=== PATIENT | male | born 1935 | race Caucasian/White ===

== ENCOUNTER → 2019-08-15 | Outpatient (CLI) | payer MEDICARE, BC ==
[2016-07-16 03:30] VITALS: BP 176/92
[~2019-08-15] MED LIST: ASPIRIN E.C. 8181 M1 PO; CLONAZEPAM0.5 MG PO; CLOPIDOGREL PO; COLACE 100100 MG/CAP PO; IRON325 M1 PO; LOPRESSOR 550 MG/TAB PO; MECLIZINE HCL25 MG PO; METOPROLOL SUCC50 MG PO; METOPROLOL TAR100 MG PO; MIRALAX PA17 GM/Dose PO; PLAVIX 75MG TAB75 MG PO; PROSCAR PO; SIMVASTATIN40 MG PO; TOPROL XL 25MG25 MG PO; ULTRAM50 MG PO; ZETIA 10MG TAB10 MG PO; Zocor PO
== END ==
LOC: RAD 10:45
DX: I67.82 Cerebral ischemia (principal); G31.9 Degenerative disease of nervous system, unspecified
CPT/HCPCS: A9585

== ENCOUNTER → 2020-02-04 | Outpatient (CLI) | payer MEDICARE, BC ==
[2016-07-16 03:30] VITALS: BP 176/92
== END ==
LOC: RAD 10:10
DX: M79.661 Pain in right lower leg (principal)

== ENCOUNTER 2020-03-10 08:04 | Observation (INO) | payer MEDICARE, BC ==
[~2020-03-10] VITALS: Ht 167.6 cm; Wt 75.2 kg
[2020-03-10] MEDS ORDERED: ARICEPT5 M1 PO (08:20)
[2020-03-10] MEDS ORDERED: CHILDREN'S ASPI81 M1 PO (08:21)
[2020-03-10 08:45] LABS: EOS # 0.1 (0.04-0.40); EOS % 1.1 % (0.0-4.0); HEMATOCRIT 47.3 % (42.0-52.0); HEMOGLOBIN 15.8 g/dL (13.5-18.0); LYMPH# 1.2 (1.50-4.00); MEAN CELL VOLUME 95 fl (78-100); MEAN CORPUSCULAR HEMOGLOBIN 32 pg (27-31); MEAN CORPUSCULAR HGB CONC 33 g/dL (33-37); MEAN PLATELET VOLUME 10.7 fl (7.4-10.4); MONO # 0.6 (0.20-0.80); NEU # 3.7 (1.40-6.50); PLATELET COUNT 158 K/mm3 (130-400); RED BLOOD COUNT 4.97 M/mm3 (4.20-5.60); RED CELL DISTRIBUTION WIDTH 13.6 % (11.5-14.5); WHITE BLOOD COUNT 5.6 K/mm3 (4.8-10.8)
[2020-03-10 08:58] LABS: ALBUMIN 4.1 g/dL (3.4-4.8)
[2020-03-10 08:59] LABS: POTASSIUM 3.7 mmol/L (3.5-5.1)
[2020-03-10 09:00] LABS: CALCIUM 8.2 mg/dL (8.3-10.5)
[2020-03-10 09:03] LABS: TOTAL BILIRUBIN 0.9 mg/dL (0.2-1.2)
[2020-03-10 09:57] LABS: PH-URINE 6.5 (5.0 - 8.0); URINE APPEARANCE HAZY; URINE BILIRUBIN NEGATIVE (NEGATIVE); URINE COLOR YELLOW; URINE GLUCOSE NEGATIVE (NEGATIVE); URINE KETONE NEGATIVE (NEGATIVE); URINE PROTEIN(semi-quant) NEGATIVE (NEGATIVE); URINE UROBILINOGEN NORMAL (NORMAL)
[2020-03-10 09:58] LABS: URINE BLOOD TRACE (NEGATIVE); URINE LEUKOCYTE ESTERASE TRACE (NEGATIVE); URINE MUCUS PRESENT (NOT PRESENT); URINE NITRATE NEGATIVE (NEGATIVE)
--- NOTE | 2020-03-10 10:54 | NUR ---
PT ADMITTED OBSERVATION TO ROOM 304, STABLE CONDITION, EDUCATED ON "NO VISITOR POLICY" FOR PUI'S, HESITANT BUT AGREEABLE, PT ESCORTED TO ROOM VIA WHEELCHAIR, STATES "IM REALLY FEELING MUCH BETTER NOW, BUT I SUPPOSE I'LL STAY," WILL MONITOR PT FOR FURTHER DIZZINESS/FATIGUE
[2020-03-10 11:01] VITALS: BP 164/87
[2020-03-10 11:21] VITALS: BP 164/87
--- NOTE | 2020-03-10 11:30 | NUR ---
Tele applied at this time by staff.
[2020-03-10 13:59] VITALS: BP 137/74
[2020-03-10 17:33] VITALS: BP 157/103
--- NOTE | 2020-03-10 21:04 | NUR ---
Pt assessment complete. Pt is laying in bed upon entry, he is alert and oriented to person and place although he is unable to recall what month it is. Pt is able to recall event that brought him into the ER. He reports he has had no further issues with dizziness after arriving here. He denies any pain. No SOB or nausea. Strength equal bilaterally. Denies needs at this time, reports he is going to try and sleep. Call light within reach.
[2020-03-10 21:16] VITALS: BP 159/88
--- NOTE | 2020-03-10 22:45 | NUR ---
Report received from Michelle Zhao RN. Pt resting in bed, eyes closed. Bed alarm set and call light with in reach.
[2020-03-11 01:54] VITALS: BP 144/92
[2020-03-11 05:47] VITALS: BP 138/98
--- NOTE | 2020-03-11 06:20 | NUR ---
Q hourly checks done, bed alarm and call light with in reach. 0600 denied having any pain or SOB. Neuro checks done, see process intervention. Answers all questions appropriately.
--- NOTE | 2020-03-11 07:21 | NUR ---
PATIENT REPORT RECEIVED FROM EDUARDO CHAN. PATIENT SLEEPING IN ROOM
[2020-03-11] MEDS ORDERED: ZESTRIL5 M1 PO (08:15)
--- NOTE | 2020-03-11 08:40 | NUR ---
PLAN IS TO DISCHARGE TODAY AROUND 10:00AM. PATIENT IS AWARE AND WOULD LIKE TO EAT BREAKFAST IN BED THEN GET UP FOR THE DAY AND GET READY TO LEAVE
--- NOTE | 2020-03-11 09:56 | NUR ---
PATIENT DISCHARGED WITH INSTRUCTIONS GIVEN. DENIES QUESTIONS OR CONCERNS AND VERBALIZES UNDERSTANDING TO QUARANTINE UNTIL RESULTS ARE AVAILABLE. PATIENT DENIES DIZZINESS OR OTHER SYMPTOMS AT THIS TIME. PATIENT REPORTS HE IS TO HAVE UPCOMING STRESS TEST AND WILL DISCUSS IF HE HAS HAD ATRIAL FIBRILLATION IN THE PAST. PATIENT AMBULATORY OUT OF DEPT WITH HIS WAITING FOR HIM IN THE CAR. PATIENT HAS ALL HIS BELONGINGS AND IV SITE WAS D/C'D.
[2020-03-11 10:00] VITALS: BP 153/83
== END 2020-03-11 10:00 | disposition home or self-care (01) ==
LOC: ED 08:04 → MED/SURG 10:27
PROVIDERS: ADMIT Nurse Practitioner Primary Care
DX: R42 Dizziness and giddiness (principal); I10 Essential (primary) hypertension; I25.10 Atherosclerotic heart disease of native coronary artery without angina pectoris; I25.2 Old myocardial infarction; F03.90 Unspecified dementia, unspecified severity, without behavioral disturbance, psychotic disturbance, mood disturbance, and anxiety; Z86.73 Personal history of transient ischemic attack (TIA), and cerebral infarction without residual deficits; Z79.82 Long term (current) use of aspirin; Z88.2 Allergy status to sulfonamides; Z88.5 Allergy status to narcotic agent; Z20.828 Contact with and (suspected) exposure to other viral communicable diseases
CPT/HCPCS: G0378

== ENCOUNTER → 2020-04-10 | Outpatient (CLI) | payer MEDICARE, BC ==
[2020-03-11 10:00] VITALS: BP 153/83
[~2020-04-10] MED LIST changes: +ARICEPT5 M1 PO; +CHILDREN'S ASPI81 M1 PO; +ZESTRIL5 M1 PO
== END ==
LOC: LAB 08:12
DX: N40.1 Benign prostatic hyperplasia with lower urinary tract symptoms (principal)

== ENCOUNTER 2020-04-14 21:20 | Emergency (ER) | payer MEDICARE, BC ==
[2020-04-14 22:00] LABS: HEMATOCRIT 47.4 % (42.0-52.0); HEMOGLOBIN 15.4 g/dL (13.5-18.0); MEAN CELL VOLUME 96 fl (78-100); MEAN CORPUSCULAR HEMOGLOBIN 31 pg (27-31); MEAN CORPUSCULAR HGB CONC 33 g/dL (33-37); MEAN PLATELET VOLUME 10.6 fl (7.4-10.4); PLATELET COUNT 152 K/mm3 (130-400); RED BLOOD COUNT 4.95 M/mm3 (4.20-5.60); RED CELL DISTRIBUTION WIDTH 13.6 % (11.5-14.5); WHITE BLOOD COUNT 8.4 K/mm3 (4.8-10.8)
[2020-04-14 22:13] LABS: ALBUMIN 4.2 g/dL (3.4-4.8)
[2020-04-14 22:15] LABS: CALCIUM 8.9 mg/dL (8.3-10.5)
[2020-04-14 22:16] LABS: TOTAL PROTEIN 7.1 g/dL (6.2-8.1)
[2020-04-14 22:18] LABS: TOTAL BILIRUBIN 0.7 mg/dL (0.2-1.2)
[2020-04-14 22:20] LABS: LYMPHOCYTE 9 % (20-51); MONOCYTE 4 % (3-10); NEUTROPHILS 87 % (42-75)
[2020-04-14] MEDS ORDERED: SIMVASTATIN40 M1 PO (22:29)
[2020-04-14] MEDS ORDERED: EZETIMIBE10 M1 PO (22:30)
[2020-04-14 23:01] LABS: URINE APPEARANCE CLEAR; URINE BILIRUBIN NEGATIVE (NEGATIVE); URINE BLOOD TRACE (NEGATIVE); URINE COLOR YELLOW; URINE GLUCOSE NEGATIVE (NEGATIVE); URINE KETONE 2+ (NEGATIVE); URINE LEUKOCYTE ESTERASE NEGATIVE (NEGATIVE); URINE NITRATE NEGATIVE (NEGATIVE); URINE PROTEIN(semi-quant) 2+ mg/dL (NEGATIVE); URINE UROBILINOGEN NORMAL (NORMAL); URINE WBC 0-1 /hpf (0-3)
[2020-04-14 23:02] LABS: URINE MUCUS PRESENT (NOT PRESENT)
[2020-04-14 23:28] VITALS: BP 155/83
== END 2020-04-14 23:28 | disposition home or self-care (01) ==
LOC: ED 21:20
PROVIDERS: Nurse Practitioner
DX: R42 Dizziness and giddiness (principal); R11.2 Nausea with vomiting, unspecified; I10 Essential (primary) hypertension; I25.2 Old myocardial infarction; Z79.82 Long term (current) use of aspirin; Z87.442 Personal history of urinary calculi; Z95.9 Presence of cardiac and vascular implant and graft, unspecified; Z86.73 Personal history of transient ischemic attack (TIA), and cerebral infarction without residual deficits
CPT/HCPCS: J2405; J7030

== ENCOUNTER → 2021-06-03 | Outpatient (CLI) | payer MEDICARE, BC ==
[~2021-06-03] MED LIST changes: +EZETIMIBE10 M1 PO; +SIMVASTATIN40 M1 PO
== END ==
LOC: LAB 10:26
DX: R07.9 Chest pain, unspecified (principal)

== ENCOUNTER 2022-04-19 19:07 | Emergency (ER) | payer MEDICARE, BC ==
[~2022-04-19] VITALS: Ht 170.2 cm; Wt 75.2 kg
[~2022-04-19 19:07] MED LIST changes: +ASPIRIN E.C. 8181 MG PO; -CHILDREN'S ASPI81 M1 PO
[2022-04-19] MEDS ORDERED: NITROSTAT0.4 M1 SL (19:29)
[2022-04-19] MEDS ORDERED: CRESTOR20 MG PO (19:29)
[2022-04-19] MEDS ORDERED: PROSCAR PO (19:30)
[2022-04-19 21:30] LABS: BASO # 0.03 K/mm3 (0.02-0.10); EOS # 0.08 K/mm3 (0.04-0.40); EOS % 0.8 % (0.0-4.0); HEMATOCRIT 44.1 % (42.0-52.0); HEMOGLOBIN 14.6 g/dL (13.5-18.0); LYMPH# 1.18 K/mm3 (1.50-4.00); MEAN CELL VOLUME 96 fl (78-100); MEAN CORPUSCULAR HEMOGLOBIN 32 pg (27-31); MEAN CORPUSCULAR HGB CONC 33 g/dL (33-37); MEAN PLATELET VOLUME 12.5 fl (7.4-10.4); MONO # 0.91 K/mm3 (0.20-0.80); NEU # 7.87 K/mm3 (1.40-6.50); PLATELET COUNT 136 K/mm3 (130-400); RED BLOOD COUNT 4.58 M/mm3 (4.20-5.60); RED CELL DISTRIBUTION WIDTH 13.3 % (11.5-14.5); WHITE BLOOD COUNT 10.1 K/mm3 (4.8-10.8)
[2022-04-19] MEDS ORDERED: LOPRESSOR 225 MG/TAB PO (21:30)
[2022-04-19 21:40] LABS: ALBUMIN 3.8 g/dL (3.4-4.8); POTASSIUM 5.3 mmol/L (3.5-5.1)
[2022-04-19 21:41] LABS: CALCIUM 8.7 mg/dL (8.3-10.5)
[2022-04-19 21:42] LABS: TOTAL PROTEIN 6.9 g/dL (6.2-8.1)
[2022-04-19 21:44] LABS: TOTAL BILIRUBIN 0.6 mg/dL (0.2-1.2)
[2022-04-19 22:29] LABS: URINE APPEARANCE CLEAR; URINE BILIRUBIN NEGATIVE (NEGATIVE); URINE BLOOD 2 (NEGATIVE); URINE COLOR YELLOW; URINE GLUCOSE NEGATIVE (NEGATIVE); URINE KETONE 1+ (NEGATIVE); URINE LEUKOCYTE ESTERASE NEGATIVE (NEGATIVE); URINE NITRATE NEGATIVE (NEGATIVE); URINE PROTEIN(semi-quant) NEGATIVE (NEGATIVE); URINE UROBILINOGEN NORMAL (NORMAL)
[2022-04-19 22:30] LABS: URINE WBC 0-1 /hpf (0-3)
[2022-04-20 08:14] LABS: ALBUMIN 4.1 g/dL (3.4-4.8)
[2022-04-20 08:15] VITALS: BP 125/97
[2022-04-20 08:15] LABS: POTASSIUM 4.1 mmol/L (3.5-5.1)
[2022-04-20 08:16] LABS: CALCIUM 8.7 mg/dL (8.3-10.5)
[2022-04-20 08:17] LABS: TOTAL PROTEIN 6.9 g/dL (6.2-8.1)
[2022-04-20 08:19] LABS: TOTAL BILIRUBIN 1.2 mg/dL (0.2-1.2)
== END 2022-04-20 08:15 | disposition short-term general hospital (02) ==
LOC: ED 19:07
PROVIDERS: Nurse Practitioner
DX: S82.851A Displaced trimalleolar fracture of right lower leg, initial encounter for closed fracture (principal); M25.511 Pain in right shoulder; Z88.5 Allergy status to narcotic agent; W18.43XA Slipping, tripping and stumbling without falling due to stepping from one level to another, initial encounter
CPT/HCPCS: J1170; J2405; J2550; J3010; J3360

== ENCOUNTER 2022-04-22 10:12 | Inpatient (IN) | payer MEDICARE, BC ==
[~2022-04-22] VITALS: Ht 170.2 cm; Wt 81.0 kg
[~2022-04-22 10:12] MED LIST changes: +CRESTOR20 MG PO; +LOPRESSOR 225 MG/TAB PO; +NITROSTAT0.4 M1 SL
[2022-04-23 12:53] VITALS: BP 162/107
[2022-04-23] MEDS ORDERED: PROTONIX20 M1 PO (12:57)
[2022-04-23] MEDS ORDERED: GOOD NEIGHBOR500 M2 PO (13:00)
[2022-04-23] MEDS ORDERED: CITALOPRAM HBR10 MG PO (13:01)
[2022-04-23] MEDS ORDERED: FISH OIL 1000MG1 CAP PO (13:03)
[2022-04-23] MEDS ORDERED: VITAMIN E400 UNIT PO (13:06)
[2022-04-23 17:48] VITALS: BP 143/84
[2022-04-23 20:01] LABS: URINE APPEARANCE CLEAR; URINE BILIRUBIN NEGATIVE (NEGATIVE); URINE BLOOD 250 ery/uL (NEGATIVE); URINE COLOR YELLOW; URINE GLUCOSE NEGATIVE (NEGATIVE); URINE KETONE NEGATIVE (NEGATIVE); URINE LEUKOCYTE ESTERASE NEGATIVE (NEGATIVE); URINE NITRATE NEGATIVE (NEGATIVE); URINE PROTEIN(semi-quant) NEGATIVE (NEGATIVE); URINE UROBILINOGEN NORMAL (NORMAL); URINE WBC 0-1 /hpf (0-3)
[2022-04-24 06:13] VITALS: BP 145/83
[2022-04-24 07:21] LABS: BASO # 0.03 K/mm3 (0.02-0.10); EOS % 3.1 % (0.0-4.0); HEMATOCRIT 42.7 % (42.0-52.0); LYMPH# 0.98 K/mm3 (1.50-4.00); MEAN CELL VOLUME 97 fl (78-100); MEAN CORPUSCULAR HEMOGLOBIN 32 pg (27-31); MEAN CORPUSCULAR HGB CONC 33 g/dL (33-37); MEAN PLATELET VOLUME 10.7 fl (7.4-10.4); MONO # 0.76 K/mm3 (0.20-0.80); NEU # 4.54 K/mm3 (1.40-6.50); PLATELET COUNT 141 K/mm3 (130-400); RED BLOOD COUNT 4.39 M/mm3 (4.20-5.60); WHITE BLOOD COUNT 6.5 K/mm3 (4.8-10.8)
[2022-04-24 07:24] LABS: ALBUMIN 3.5 g/dL (3.4-4.8)
[2022-04-24 07:25] LABS: POTASSIUM 4.2 mmol/L (3.5-5.1)
[2022-04-24 07:26] LABS: CALCIUM 8.6 mg/dL (8.3-10.5)
[2022-04-24 07:27] LABS: TOTAL PROTEIN 6.3 g/dL (6.2-8.1)
[2022-04-24 07:29] LABS: TOTAL BILIRUBIN 1.3 mg/dL (0.2-1.2)
[2022-04-24 17:05] VITALS: BP 153/84
[2022-04-25 05:47] VITALS: BP 132/88
[2022-04-25 16:46] VITALS: BP 160/88
[2022-04-26 05:06] VITALS: BP 154/51
[2022-05-14] MEDS ORDERED: REFRESH 1 ML1 ML OU (13:00)
[2022-05-14] MEDS ORDERED: PREMIERPRO RX5 MG/GM OU (13:04)
[2022-05-14] MEDS ORDERED: ROXICODONE 55 MG/TAB PO (13:05)
[2022-05-14] MEDS ORDERED: DOCUSATE SODIUM1 TA3 PO (13:05)
[2022-05-14] MEDS ORDERED: ACETAMINOPHEN500 M5 PO (13:06)
[2022-05-14] MEDS ORDERED: TYLENOL325 M1 PO (13:07)
[2022-05-14] MEDS ORDERED: OMEGA 3 FISH O1 EACH PO (13:08)
[2022-05-14] MEDS ORDERED: TRIAMCINOLONE A15 G3 TP (13:10)
[2022-05-14] MEDS ORDERED: VITAMIN E400 UNIT PO (13:10)
== END 2022-04-26 12:00 | disposition home or self-care (01) | DRG 560 ==
LOC: MED/SURG 04-23 10:11
PROVIDERS: ADMIT Nurse Practitioner
DX: S82.851D Displaced trimalleolar fracture of right lower leg, subsequent encounter for closed fracture with routine healing (principal); K57.92 Diverticulitis of intestine, part unspecified, without perforation or abscess without bleeding; I25.10 Atherosclerotic heart disease of native coronary artery without angina pectoris; N40.0 Benign prostatic hyperplasia without lower urinary tract symptoms; K21.9 Gastro-esophageal reflux disease without esophagitis; L57.0 Actinic keratosis; F03.90 Unspecified dementia, unspecified severity, without behavioral disturbance, psychotic disturbance, mood disturbance, and anxiety; I10 Essential (primary) hypertension; F32.9 Major depressive disorder, single episode, unspecified; E78.2 Mixed hyperlipidemia; W19.XXXD Unspecified fall, subsequent encounter; R53.81 Other malaise; Z79.82 Long term (current) use of aspirin; Z95.1 Presence of aortocoronary bypass graft; Z95.2 Presence of prosthetic heart valve; Z88.2 Allergy status to sulfonamides; Z88.5 Allergy status to narcotic agent
CPT/HCPCS: J1650

== ENCOUNTER 2022-04-26 16:15 | Inpatient (IN) | payer MEDICARE, BC ==
[~2022-04-26] VITALS: Ht 170.2 cm; Wt 81.0 kg
[~2022-04-26 16:15] MED LIST changes: +CITALOPRAM HBR10 MG PO; +FISH OIL 1000MG1 CAP PO; +GOOD NEIGHBOR500 M2 PO; +PROTONIX20 M1 PO; +VITAMIN E400 UNIT PO
[2022-04-26 17:26] VITALS: BP 153/92
[2022-04-26 18:59] VITALS: BP 153/92
[2022-04-27 05:35] VITALS: BP 157/86
[2022-04-27 17:21] VITALS: BP 148/91
[2022-04-28 05:54] VITALS: BP 156/89
[2022-04-28 17:17] VITALS: BP 166/88
[2022-04-29 05:58] VITALS: BP 146/97
[2022-04-29 16:38] LABS: BASO # 0.04 K/mm3 (0.02-0.10); EOS # 0.21 K/mm3 (0.04-0.40); EOS % 2.9 % (0.0-4.0); HEMATOCRIT 43.3 % (42.0-52.0); HEMOGLOBIN 14.2 g/dL (13.5-18.0); LYMPH# 1.06 K/mm3 (1.50-4.00); MEAN CELL VOLUME 96 fl (78-100); MEAN CORPUSCULAR HEMOGLOBIN 31 pg (27-31); MEAN CORPUSCULAR HGB CONC 33 g/dL (33-37); MONO # 0.78 K/mm3 (0.20-0.80); NEU # 4.99 K/mm3 (1.40-6.50); PLATELET COUNT 224 K/mm3 (130-400); RED BLOOD COUNT 4.53 M/mm3 (4.20-5.60); RED CELL DISTRIBUTION WIDTH 13.1 % (11.5-14.5); WHITE BLOOD COUNT 7.1 K/mm3 (4.8-10.8)
[2022-04-29 16:46] LABS: ALBUMIN 3.7 g/dL (3.4-4.8)
[2022-04-29 16:47] LABS: POTASSIUM 4.2 mmol/L (3.5-5.1)
[2022-04-29 16:48] LABS: CALCIUM 8.6 mg/dL (8.3-10.5)
[2022-04-29 16:49] LABS: TOTAL PROTEIN 6.8 g/dL (6.2-8.1)
[2022-04-29 16:51] LABS: TOTAL BILIRUBIN 0.6 mg/dL (0.2-1.2)
[2022-04-29 17:08] LABS: URINE APPEARANCE CLEAR; URINE COLOR YELLOW
[2022-04-29 17:09] LABS: URINE BILIRUBIN NEGATIVE (NEGATIVE); URINE BLOOD 50 ery/uL (NEGATIVE); URINE GLUCOSE NEGATIVE (NEGATIVE); URINE KETONE NEGATIVE (NEGATIVE); URINE LEUKOCYTE ESTERASE NEGATIVE (NEGATIVE); URINE NITRATE NEGATIVE (NEGATIVE); URINE PROTEIN(semi-quant) TRACE (NEGATIVE); URINE UROBILINOGEN NORMAL (NORMAL); URINE WBC 0-1 /hpf (0-3)
[2022-04-29 18:05] VITALS: BP 173/77
[2022-04-30 05:37] VITALS: BP 154/90
[2022-04-30 17:24] VITALS: BP 139/79
[2022-05-01 06:04] VITALS: BP 143/86
[2022-05-01 17:09] VITALS: BP 136/90
[2022-05-01 17:49] LABS: URINE APPEARANCE CLEAR; URINE COLOR YELLOW; URINE GLUCOSE NEGATIVE (NEGATIVE); URINE PROTEIN(semi-quant) NEGATIVE (NEGATIVE)
[2022-05-01 17:50] LABS: URINE BILIRUBIN NEGATIVE (NEGATIVE); URINE BLOOD 250 ery/uL (NEGATIVE); URINE KETONE NEGATIVE (NEGATIVE); URINE LEUKOCYTE ESTERASE NEGATIVE (NEGATIVE); URINE NITRATE NEGATIVE (NEGATIVE); URINE UROBILINOGEN NORMAL (NORMAL); URINE WBC 0-1 /hpf (0-3)
[2022-05-02 06:28] VITALS: BP 142/80
[2022-05-02 18:00] VITALS: BP 127/76
[2022-05-03 06:19] VITALS: BP 117/71
[2022-05-03 18:15] VITALS: BP 160/91
[2022-05-04 05:44] VITALS: BP 158/86
[2022-05-04 17:18] VITALS: BP 159/88
[2022-05-05 05:37] VITALS: BP 157/86
[2022-05-14] MEDS ORDERED: REFRESH 1 ML1 ML OU (13:00)
[2022-05-14] MEDS ORDERED: PREMIERPRO RX5 MG/GM OU (13:04)
[2022-05-14] MEDS ORDERED: ROXICODONE 55 MG/TAB PO (13:05)
[2022-05-14] MEDS ORDERED: DOCUSATE SODIUM1 TA3 PO (13:05)
[2022-05-14] MEDS ORDERED: ACETAMINOPHEN500 M5 PO (13:06)
[2022-05-14] MEDS ORDERED: TYLENOL325 M1 PO (13:07)
[2022-05-14] MEDS ORDERED: OMEGA 3 FISH O1 EACH PO (13:08)
[2022-05-14] MEDS ORDERED: VITAMIN E400 UNIT PO (13:10)
[2022-05-14] MEDS ORDERED: TRIAMCINOLONE A15 G3 TP (13:10)
== END 2022-05-05 06:53 | disposition home or self-care (01) | DRG 561 ==
LOC: MED/SURG 16:15
PROVIDERS: Family Medicine; ADMIT Nurse Practitioner
DX: S82.851D Displaced trimalleolar fracture of right lower leg, subsequent encounter for closed fracture with routine healing (principal); I25.10 Atherosclerotic heart disease of native coronary artery without angina pectoris; K21.9 Gastro-esophageal reflux disease without esophagitis; I10 Essential (primary) hypertension; N40.0 Benign prostatic hyperplasia without lower urinary tract symptoms; F03.90 Unspecified dementia, unspecified severity, without behavioral disturbance, psychotic disturbance, mood disturbance, and anxiety; F32.9 Major depressive disorder, single episode, unspecified; E78.2 Mixed hyperlipidemia; R53.81 Other malaise; W18.40XD Slipping, tripping and stumbling without falling, unspecified, subsequent encounter; Z79.82 Long term (current) use of aspirin; Z95.1 Presence of aortocoronary bypass graft; Z95.2 Presence of prosthetic heart valve; Z88.2 Allergy status to sulfonamides; Z88.5 Allergy status to narcotic agent
CPT/HCPCS: J1650

== ENCOUNTER 2022-05-05 09:31 | Inpatient (IN) | payer MEDICARE, BC ==
[~2022-05-05] VITALS: Ht 170.2 cm; Wt 77.4 kg
[2022-05-05 10:16] VITALS: BP 118/74
[2022-05-05 17:32] VITALS: BP 138/87
[2022-05-06 05:45] VITALS: BP 108/76
[2022-05-06 06:37] LABS: BASO # 0.05 K/mm3 (0.02-0.10); HEMATOCRIT 42.9 % (42.0-52.0); HEMOGLOBIN 14.1 g/dL (13.5-18.0); LYMPH# 1.46 K/mm3 (1.50-4.00); MEAN CELL VOLUME 97 fl (78-100); MEAN CORPUSCULAR HEMOGLOBIN 32 pg (27-31); MEAN CORPUSCULAR HGB CONC 33 g/dL (33-37); MEAN PLATELET VOLUME 9.9 fl (7.4-10.4); MONO # 0.64 K/mm3 (0.20-0.80); NEU # 4.31 K/mm3 (1.40-6.50); PLATELET COUNT 257 K/mm3 (130-400); RED BLOOD COUNT 4.42 M/mm3 (4.20-5.60); RED CELL DISTRIBUTION WIDTH 13.4 % (11.5-14.5); WHITE BLOOD COUNT 6.7 K/mm3 (4.8-10.8)
[2022-05-06 06:55] LABS: POTASSIUM 3.9 mmol/L (3.5-5.1)
[2022-05-06 06:56] LABS: CALCIUM 8.8 mg/dL (8.3-10.5)
[2022-05-06 17:34] VITALS: BP 153/89
[2022-05-07 05:50] VITALS: BP 145/85
[2022-05-07 16:53] LABS: ALBUMIN 3.5 g/dL (3.4-4.8)
[2022-05-07 16:54] LABS: CALCIUM 8.7 mg/dL (8.3-10.5)
[2022-05-07 16:55] LABS: TOTAL PROTEIN 6.2 g/dL (6.2-8.1)
[2022-05-07 16:57] LABS: TOTAL BILIRUBIN 0.5 mg/dL (0.2-1.2)
[2022-05-07 17:02] VITALS: BP 120/75
[2022-05-08 05:30] VITALS: BP 150/88
[2022-05-08 18:07] VITALS: BP 146/85
[2022-05-09 05:26] VITALS: BP 143/80
[2022-05-09 15:30] VITALS: BP 143/83
[2022-05-10 05:50] VITALS: BP 124/70
[2022-05-10 18:07] VITALS: BP 136/77
[2022-05-11 05:43] VITALS: BP 139/85
[2022-05-11 18:11] VITALS: BP 149/83
[2022-05-12 05:38] VITALS: BP 120/78
[2022-05-14] MEDS ORDERED: REFRESH 1 ML1 ML OU (13:00)
[2022-05-14] MEDS ORDERED: PREMIERPRO RX5 MG/GM OU (13:04)
[2022-05-14] MEDS ORDERED: ROXICODONE 55 MG/TAB PO (13:05)
[2022-05-14] MEDS ORDERED: DOCUSATE SODIUM1 TA3 PO (13:05)
[2022-05-14] MEDS ORDERED: ACETAMINOPHEN500 M5 PO (13:06)
[2022-05-14] MEDS ORDERED: TYLENOL325 M1 PO (13:07)
[2022-05-14] MEDS ORDERED: OMEGA 3 FISH O1 EACH PO (13:08)
[2022-05-14] MEDS ORDERED: VITAMIN E400 UNIT PO (13:10)
[2022-05-14] MEDS ORDERED: TRIAMCINOLONE A15 G3 TP (13:10)
== END 2022-05-12 07:35 | disposition home or self-care (01) | DRG 561 ==
LOC: MED/SURG 09:31
PROVIDERS: Nurse Practitioner; ADMIT Physician Assistant
DX: S82.851D Displaced trimalleolar fracture of right lower leg, subsequent encounter for closed fracture with routine healing (principal); I25.10 Atherosclerotic heart disease of native coronary artery without angina pectoris; I10 Essential (primary) hypertension; N40.0 Benign prostatic hyperplasia without lower urinary tract symptoms; K21.9 Gastro-esophageal reflux disease without esophagitis; F03.90 Unspecified dementia, unspecified severity, without behavioral disturbance, psychotic disturbance, mood disturbance, and anxiety; E78.2 Mixed hyperlipidemia; R53.81 Other malaise; W18.30XD Fall on same level, unspecified, subsequent encounter; Z79.82 Long term (current) use of aspirin; Z95.2 Presence of prosthetic heart valve; Z95.1 Presence of aortocoronary bypass graft; Z88.2 Allergy status to sulfonamides; Z88.5 Allergy status to narcotic agent
CPT/HCPCS: J1650

== ENCOUNTER 2022-07-02 13:00 | Outpatient (RCR) | payer MEDICARE, BC ==
[~2022-07-02 13:00] MED LIST changes: +ACETAMINOPHEN500 M5 PO; +DOCUSATE SODIUM1 TA3 PO; +OMEGA 3 FISH O1 EACH PO; +PREMIERPRO RX5 MG/GM OU; +REFRESH 1 ML1 ML OU; +ROXICODONE 55 MG/TAB PO; +TRIAMCINOLONE A15 G3 TP; +TYLENOL325 M1 PO
== END 2022-07-28 | disposition home or self-care (01) ==
LOC: PT
DX: S82.851S Displaced trimalleolar fracture of right lower leg, sequela (principal); X58.XXXS Exposure to other specified factors, sequela

== ENCOUNTER → 2023-10-06 | Outpatient (CLI) | payer MEDICARE, BC | LOC: RAD 18:32 | DX: G31.9 Degenerative disease of nervous system, unspecified (principal); I97.89 Other postprocedural complications and disorders of the circulatory system, not elsewhere classified ==

== ENCOUNTER → 2024-11-02 | Outpatient (CLI) | payer MEDICARE, BC | LOC: RAD 14:24 | DX: J98.11 Atelectasis (principal); J98.4 Other disorders of lung ==